=== PATIENT | male | born 1940 | race Caucasian/White ===

== ENCOUNTER → 2018-05-05 | Outpatient (CLI) | payer OTHER, MEDICARE ==
--- NOTE | 2018-05-05 16:06 | Diagnostic Imaging Report ---
EXAM: CT Abdomen and Pelvis WITHOUT contrast INDICATION: Gross hematuria. COMPARISON: None. TECHNIQUE: Abdomen and pelvis were scanned utilizing a multidetector helical scanner from the lung base to the pubic symphysis without administration of IV contrast. Absence of intravenous contrast decreases sensitivity for detection of focal lesions and vascular pathology. Coronal and sagittal reformations were obtained. Renal stone protocol was performed. IV CONTRAST: None. RADIATION DOSE: Total DLP: 612.6 mGy*cm Dose modulation, iterative reconstruction, and/or weight based adjustment of the mA/kV was utilized to reduce the radiation dose to as low as reasonably achievable. COMPLICATIONS: None FINDINGS: LINES and TUBES: None. LOWER THORAX: Scattered coronary atherosclerosis. HEPATOBILIARY: Subcentimeter right hepatic lobe lesions are too small to characterize. No biliary ductal dilation. GALLBLADDER: Decompressed. No radio-opaque stones or sludge. SPLEEN: No splenomegaly. PANCREAS: No focal masses or ductal dilatation. ADRENALS: No adrenal nodules KIDNEYS/URETERS: No hydronephrosis. No solid mass lesions. No stones. Simple appearing 1.8 cm left upper pole renal cyst. GI TRACT: No abnormal distention, wall thickening, or evidence of bowel obstruction. There are postsurgical changes at the cecum. Appendix is normal. PELVIC ORGANS/BLADDER: Status post cystectomy with ileal conduit with a right lower quadrant urostomy. LYMPH NODES: No lymphadenopathy. VESSELS: There are scattered atherosclerotic calcifications in the aorta and branch vessels. PERITONEUM / RETROPERITONEUM: No free air or fluid. BONES: Unremarkable. SOFT TISSUES: There is a right lower quadrant anterior abdominal wall parastomal hernia which contains the terminal ileum and cecum. No evidence of incarceration or obstruction. IMPRESSION: No CT evidence of stone. Status post cystectomy with ileal conduit. No evidence of hydronephrosis. Parastomal right lower quadrant anterior abdominal wall hernia containing small and large bowel loops without evidence of obstruction. Signed by: Dr. Omar Baltazar MD on 05/05/2018 4:03 PM
== END ==
LOC: CT 14:11
PROVIDERS: ATTEND Family Medicine
DX: R31.0 Gross hematuria (principal)
CPT/HCPCS: 74176

== ENCOUNTER → 2020-05-22 | Outpatient (CLI) | payer MEDICARE, OTHER | LOC: US 14:16 | PROVIDERS: ATTEND Family Medicine | DX: N18.32 Chronic kidney disease, stage 3b (principal) | CPT/HCPCS: 76770 ==